=== PATIENT | female | born 1955 | race Caucasian/White ===

== ENCOUNTER 2024-01-07 19:59 | Emergency (ER) | payer MEDICARE ==
[2024-01-07] MEDS ORDERED: Clindamycin 150 MG CAP ONE (20:21)
== END 2024-01-07 20:30 | disposition home or self-care (01) ==
LOC: BURERS 19:59
DX: S90.464A Insect bite (nonvenomous), right lesser toe(s), initial encounter (principal); L03.031 Cellulitis of right toe; I10 Essential (primary) hypertension; E78.5 Hyperlipidemia, unspecified; E11.9 Type 2 diabetes mellitus without complications; W57.XXXA Bitten or stung by nonvenomous insect and other nonvenomous arthropods, initial encounter; Z79.84 Long term (current) use of oral hypoglycemic drugs; Z79.899 Other long term (current) drug therapy
CPT/HCPCS: 99282